=== PATIENT | female | born 1970 ===

== ENCOUNTER 2021-08-18 10:45 | Outpatient (RCR) | payer BC, SELFPAY ==
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
[2021-07-31 13:26] VITALS: BMI 28.0
--- NOTE | 2021-08-03 11:25 | PC.NURSE ---
Case opened in treatment team.
--- NOTE | 2021-08-07 15:54 | P.PNPSP_ITS ---
Subjective Subjective Date of Service: 08/07/21 Reason For Visit: ETPH dependence, Mood D/o NOS, PTSD Guardianship: No Medical Problems Affecting Mental Status: No Interim History: Trisha describes her mood as ?all right ?. States that there is not really any improvement in her mood at this time. Tearful, having difficulty with the upcoming holiday and her multiple losses this year. Medication Compliance: Yes Side effects from medications: No Attending Groups: Yes Review of Systems Acute medical concerns: No Medical Review of Systems: unchanged Review of Systems Review of Systems Yes all other systems are reviewed and are negative Constitutional: Reports no additional constitutional complaints Mental Status Exam Mental Status Exam Narrative: Well developed, well nourished female, in NAD. Appears stated age. Appropriately groomed and dressed, appears stated age. Sitting up in chair, fully alert and cooperative. Eye contact within normal limits. Alert and oriented x4. No involuntary movements noted, motor activity calm. Manner and behavior, cooperative. Speech was fluent, unimpaired, normal rate and volume. Mood alright, depressed . Affect depressed, anxious, tearful. Thought process and associations linear, goal directed. Thought content normal. No evidence of any type of delusional thoughts or hallucinations observed or reported. Patient denies suicidal ideation at this time, reports she is safe. No HI. Appears to be reliable historian. Cognition, memory, and attention appear grossly intact. Insight and judgment fair but adequate. Affect Description: Depressed, Anxious and Sad Depressive Symptoms: Difficulty Sleeping, Crying Spells, Loss of Int. in Activity, Feelings of Worthlessness, Hopelessness, Isolating-Friends/Family, Feelings of Guilt, Unhappiness, Increased Fatigue and Low Self Esteem Judgement: Fair Diagnostics Vital Signs (24Hr): BMI result Body Mass Index 28.0 Assessment & Plan Assessment & Plan (1) Major depressive disorder, recurrent severe without psychotic features: Status: Acute Code(s): F33.2 - Major depressive disorder, recurrent severe without psychotic features Assessment and Plan: Client presents as hopeless. Reports that she is feeling extremely depressed at this time, with no improvement. Tearful at times. Denies any type of thought of harm to self or others. Reports that she was watching the news regarding the [employer] vaccine and chance of blood clots. Reports that her son 21 days after receiving the vaccine due to a blood clot that caused an DE. client reports she is feels safe, plans to stay home and attend 12 step to meetings and to go to amish on Tuesday. Feels anxious regarding upcoming holiday. She has been invited to stay over at her ex-'s house with her ex and her teenage son. However she began to cry, stating that that would just remind her of everything that she has lost. She reports that she does not have any close friends in this area, as her friends are out [place] by [facility]. She is not close with her mother or sister, who have moved to [place]. She describes them as unsupportive. We discussed possibilities of coming to hospital for an evaluation, possibility of respite care, a grief support group, the upcoming AA [facility] and in-person meetings, attending amish. She reports that she feels safe, and does not feel that she needs to be evaluated for inpatient level of care at this time or for a respite. Denies SI. She states that on she plans to visit her son's grave in [place]. She is aware of the [facility] in [place], and may attend it. She reports that she does not need any medication changes at this time, but that she needs to learn how to cope with losses, and to develop a support system. (2) TASHA (generalized anxiety disorder): Status: Acute Code(s): F41.1 - Generalized anxiety disorder (3) Chronic post-traumatic stress disorder (PTSD): Status: Acute Code(s): F43.12 - Post-traumatic stress disorder, chronic (4) Alcohol use disorder, severe, in early remission: Status: Acute Code(s): F10.21 - Alcohol dependence, in remission Assessment and Plan: 1. Continue with current medications as prescribed. 2. Continue to offer support and encouragement. 3. Follow-up as per protocol. Patient educated on: diagnosis, medication risk/benefits, substance abuse and therapeutic strategies Informed Consent: understands Reason for contiued partial hosp. stay Substantial Risk for: harm to self, inability to function and med/psych decompensation Certification I certify that partial hospital treatment is medically necessary due to the symptoms and problems resulting from the patient's mental illness and the failure to treat the patient at the partial hospital level of care would likely result in the patient requiring inpatient psychiatric care which could not be prevented at a less intensive level of care. I spent minutes with the patient and/or on the patient floor today, greater than?50% of which was spent counseling/coordinating care. Discharge Plan Discharge Attending provider: Yazan Elliott Primary Care Provider: Akil Kinsey Medications: No Action multivitamin Tablet 1 tab PO DAILY RF: 0 atorvastatin 20 mg Tablet 20 mg PO DAILY RF: 0 trazodone 50 mg Tablet 50 - 100 mg PO BEDTIME PRN (Reason: Insomnia) RF: 0 omeprazole 40 mg Capsule,Delayed Release(Dr/Ec) 40 mg PO DAILY RF: 0 amlodipine 10 mg Tablet 10 mg PO DAILY RF: 0 lisinopril 10 mg Tablet 10 mg PO DAILY RF: 0 folic acid 1 mg Tablet 1,000 mcg PO DAILY RF: 0 paroxetine HCl [Paxil] 40 mg Tablet 40 mg PO DAILY RF: 0 Humira 40 mg/0.8 mL Syringe Kit 40 mg SUBCUT Q2W RF: 0 bupropion HCl [Wellbutrin XL] 300 mg Tablet Extended Release 24 Hr 300 mg PO QAM RF: 0 Vivitrol 380 mg Suspension,Extended Rel Recon 380 mg IM QMONTH RF: 0 Referrals: Akil Kinsey MD [Primary Care Provider] - 1 Week Telehealth Telehealth Location of provider rendering services: practice address Location of patient: address on file Patient Identification confirmed using: Name, : Yes Telehealth method: video Patient verbally consented to treatment: Yes Patient verbally consented to billing insurance company: Yes Patient informed of any privacy concerns related to visit: Yes Time spent with patient (mins): 15
--- NOTE | 2021-08-10 09:28 | PC.NURSE ---
Pt did not show up for community meeting today. I attempted to call pt at her residential home. I spoke to Ruthie, pt's emergency contact and staff member at the [facility]. Ruthie told me hat pt has been AWOL all weekend, since tuesday . She said she has been incontact with pt, and that pt assured her she would join groups today. She gave me pt's cell phone number (not listed in chart under contacts)- [phone]. I gave this # to Ngoc, program nurse, and explained what Ruthie said (as I had to start running group).
--- NOTE | 2021-08-10 14:47 | PC.NURSE ---
After discussing case with staff in treatment team meeting, I called pt on her cell phone. She answered and I spoke to her. She sounded dysthymic and spoke minimally in response to my questions. She said she is back at [facility], and that she is about to process her actions and her status at [facility] with the staff there. She is not sure whether or not she will be able to stay at [facility]. I let her know that she needs to be at [facility], or somewhere safe, for us to treat her (as directed by Lakesha Zimmer, [facility], criminal justice program director). She agreed to call me today and leave a message if I don't answer, letting us know if she will be continuing in treatment and staying at [facility]. I told her we need to hear from her before 7am tomorrow in able to send her a link to continue in treatment. I also explained that if she is discharged, she can return to treatment if she feels she needs it, but must be re-assessed.
--- NOTE | 2021-08-10 15:46 | P.PNPSP_ITS ---
Subjective Subjective Date of Service: 08/10/21 Reason For Visit: ETPH dependence, Mood D/o NOS, PTSD Guardianship: No Medical Problems Affecting Mental Status: No Interim History: Trisha reports feeling ?all right? today. Reports that she sl ept a lot over the weekend. Reports that she went over to her estranged 's house last night, and wrapped presents with the her and her teenage son. 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 She relates this to the fact that she was grieving her other son Gennaro who earlier this year. No SI/HI. Medication Compliance: Yes Side effects from medications: No Attending Groups: Yes Review of Systems Acute medical concerns: No Medical Review of Systems: unchanged Review of Systems Review of Systems Yes all other systems are reviewed and are negative Constitutional: Reports no additional constitutional complaints Mental Status Exam Mental Status Exam Narrative: Well developed, well nourished female, in NAD. Appears stated age. Appropriately groomed and dressed, appears stated age. Sitting up in chair, fully alert and cooperative. Eye contact within normal limits. Alert and oriented x4. No involuntary movements noted, motor activity calm. Manner and behavior, cooperative. Speech was fluent, unimpaired, normal rate and volume. Mood alright . Affect depressed, flat, blunted. Thought process and associations linear, goal directed. Thought content normal. No evidence of any type of delusional thoughts or hallucinations observed or reported. Patient denies suicidal ideation at this time, reports she is safe. No HI. Appears to be reliable historian. Cognition, memory, and attention appear grossly intact. Insight and judgment fair. Patient Appearance: Well Grooomed, Fatigued and Appropriate Patient Orientation: Person, Place, Time and Situation Level of Consciousness: Awake and Appropriate Affect Description: Depressed, Anxious and Sad Depressive Symptoms: Difficulty Sleeping, Crying Spells, Loss of Int. in Activity, Feelings of Worthlessness, Hopelessness, Unhappiness, Increased Fatigue and Low Self Esteem Judgement: Fair Diagnostics Vital Signs (24Hr): BMI result Body Mass Index 28.0 Assessment & Plan Assessment & Plan (1) Major depressive disorder, recurrent severe without psychotic features: Status: Acute Code(s): F33.2 - Major depressive disorder, recurrent severe without psychotic features Assessment and Plan: Client continues with symptoms of depression. Reports having difficulties dealing with grief and also going through divorce during . Struggling at this time. Reports that she does not want any medication changes, as she believes this is something she needs to process and get through. No SI at this time, no safety concern. 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 She states that this is a difficult time for her. (3) Chronic post-traumatic stress disorder (PTSD): Status: Acute Code(s): F43.12 - Post-traumatic stress disorder, chronic (4) Alcohol use disorder, severe, in early remission: Status: Acute Code(s): F10.21 - Alcohol dependence, in remission Assessment and Plan: Continues absent from alcohol at this time, receiving Vivitrol injections, 12 step meetings via zoom. Assessment and Plan: 1. Continue current medication regimen of wellbutrin, paxil, trazodone. 2. Follow-up as per protocol. Patient educated on: diagnosis and medication risk/benefits Informed Consent: understands Reason for contiued partial hosp. stay Substantial Risk for: harm to self, inability to function and med/psych decompensation Certification I certify that partial hospital treatment is medically necessary due to the symptoms and problems resulting from the patient's mental illness and the failure to treat the patient at the partial hospital level of care would likely result in the patient requiring inpatient psychiatric care which could not be prevented at a less intensive level of care. I spent minutes with the patient and/or on the patient floor today, greater than?50% of which was spent counseling/coordinating care. Discharge Plan Discharge Attending provider: Yazan Elliott Primary Care Provider: Akil Kinsey Medications: No Action multivitamin Tablet 1 tab PO DAILY RF: 0 atorvastatin 20 mg Tablet 20 mg PO DAILY RF: 0 trazodone 50 mg Tablet 50 - 100 mg PO BEDTIME PRN (Reason: Insomnia) RF: 0 omeprazole 40 mg Capsule,Delayed Release(Dr/Ec) 40 mg PO DAILY RF: 0 amlodipine 10 mg Tablet 10 mg PO DAILY RF: 0 lisinopril 10 mg Tablet 10 mg PO DAILY RF: 0 folic acid 1 mg Tablet 1,000 mcg PO DAILY RF: 0 paroxetine HCl [Paxil] 40 mg Tablet 40 mg PO DAILY RF: 0 Humira 40 mg/0.8 mL Syringe Kit 40 mg SUBCUT Q2W RF: 0 bupropion HCl [Wellbutrin XL] 300 mg Tablet Extended Release 24 Hr 300 mg PO QAM RF: 0 Vivitrol 380 mg Suspension,Extended Rel Recon 380 mg IM QMONTH RF: 0 Referrals: Akil Kinsey MD [Primary Care Provider] - 1 Week Telehealth Telehealth Location of provider rendering services: practice address Location of patient: address on file Patient Identification confirmed using: Name, : Yes Telehealth method: video Patient verbally consented to treatment: Yes Patient verbally consented to billing insurance company: Yes Patient informed of any privacy concerns related to visit: Yes Time spent with patient (mins): 15
--- NOTE | 2021-08-10 16:05 | PC.NURSE ---
I called and spoke to pt. We discussed options for grief and loss support groups online. I gave her info on 1) Grief Anonymous ([place]), and on 2) [email or web address] groups.
--- NOTE | 2021-08-13 14:51 | PC.NURSE ---
The client called after group and stated that she could noyt attend the third group because she was anxious about getting all her tasks done. She states that she is okay and will be in Tuesday.
--- NOTE | 2021-08-13 16:35 | PC.NURSE ---
I called and some with pt about a few more grief support groups that I found. These groups are more specific to grief around loss of a child. They include [facility], [facility] [employer] the [place], and Grieving Parents. I also sent an email to pt listing groups at her request.
--- NOTE | 2021-08-18 11:41 | PC.NURSE ---
Patient is scheduled to discharge today. Reviewed patient medications with patient. Patient reports using a pill organizer and is taking her mediations as prescribed. Denied Si, no safety issues.
--- NOTE | 2021-08-18 17:37 | PC.NURSE ---
I called an left a message for pt's therapist, Betty Zarate ([phone]). I informed therapist of pt's discharge from [facility] today.
--- NOTE | 2021-08-19 08:49 | P.PNPSP_ITS ---
Subjective Subjective Date of Service: 08/18/21 Reason For Visit: ETPH dependence, Mood D/o NOS, PTSD Interim History: Patient seen and discussed with team. Patient evaluated this morning and upon interview she reports Im doing good. Says the holiday was hard, but I got through it. She is feeling overall okay about discharge from [facility], has OP providers. Says the [facility] groups got her through the holidays. Sleep is good, however still says I sleep too much, feels like she needs it and it is restorative. Appetite is lower. Self care is not that good, has not been showering too often, wears baseball cap. Sees OP psych provider tomorrow. Does not want med changes. Denies SI/SIB, says Im safe. Has friend supports, ex is also sometimes supportive if not talking about divorce or money. Also has good relationship with her son, who is off to college soon, Im so happy for him. Medication Compliance: Yes Side effects from medications: No Attending Groups: Yes Review of Systems Acute medical concerns: No Medical Review of Systems: unchanged Mental Status Exam Mental Status Exam Narrative: Well developed, well nourished female, in NAD. Appears stated age.? Appropriately groomed and dressed, appears stated age. Sitting up in chair, fully alert and cooperative. Eye contact within normal limits.? Alert and oriented x4.? No involuntary movements noted, motor activity calm.? Manner and behavior, cooperative, engaged.? Speech was fluent, unimpaired, normal rate and volume. Mood good Affect calm, somewhat dysphoric but appropriate Thought process and associations linear, goal directed.? Thought content normal. No evidence of any type of delusional thoughts or hallucinations observed or reported.? Patient denies suicidal ideation at this time, reports she is safe.? No HI.? Appears to be reliable historian.? Cognition,? memory, and attention appear grossly intact.? Insight and judgment fair. Patient Appearance:?Well Groomed, Fatigued and Appropriate Patient Orientation:?Person, Place, Time and Situation Level of Consciousness:?Awake and Appropriate Affect Description:?Depressed, Anxious and Sad Depressive Symptoms:?Difficulty Sleeping, Crying Spells, Loss of Int. in Activity, Feelings of Worthlessness, Hopelessness, Unhappiness, Increased Fatigue and Low Self Esteem Judgment:?Fair Diagnostics Vital Signs (24Hr): BMI result Body Mass Index 28.0 Assessment & Plan Assessment & Plan (1) Alcohol use disorder, severe, in early remission: Status: Acute Code(s): F10.21 - Alcohol dependence, in remission (2) Major depressive disorder, recurrent severe without psychotic features: Status: Acute Code(s): F33.2 - Major depressive disorder, recurrent severe without psychotic features Assessment and Plan: Pt reports some improvement in symptoms of depression, continues to grief loss of her son.? Will follow up with her OP psych provider tomorrow, does not want any medication changes. Likes her current med regiment.? No SI at this time, no safety concerns. She Continues abstinence from alcohol at this time, receiving Vivitrol injections, 12 step meetings via zoom. ? ? ? 1. Continue current medication regimen of wellbutrin, paxil, trazodone. 2. Follow-up as per protocol. Pt is stable and ready for discharge from program. Certification I certify that partial hospital treatment is medically necessary due to the symptoms and problems resulting from the patient's mental illness and the failure to treat the patient at the partial hospital level of care would likely result in the patient requiring inpatient psychiatric care which could not be prevented at a less intensive level of care. I spent minutes with the patient and/or on the patient floor today, greater than?50% of which was spent counseling/coordinating care. Discharge Plan Discharge Attending provider: Yazan Elliott Primary Care Provider: Akil Kinsey Medications: No Action multivitamin Tablet 1 tab PO DAILY RF: 0 atorvastatin 20 mg Tablet 20 mg PO DAILY RF: 0 trazodone 50 mg Tablet 50 - 100 mg PO BEDTIME PRN (Reason: Insomnia) RF: 0 omeprazole 40 mg Capsule,Delayed Release(Dr/Ec) 40 mg PO DAILY RF: 0 amlodipine 10 mg Tablet 10 mg PO DAILY RF: 0 lisinopril 10 mg Tablet 10 mg PO DAILY RF: 0 folic acid 1 mg Tablet 1,000 mcg PO DAILY RF: 0 paroxetine HCl [Paxil] 40 mg Tablet 40 mg PO DAILY RF: 0 Humira 40 mg/0.8 mL Syringe Kit 40 mg SUBCUT Q2W RF: 0 bupropion HCl [Wellbutrin XL] 300 mg Tablet Extended Release 24 Hr 300 mg PO QAM RF: 0 Vivitrol 380 mg Suspension,Extended Rel Recon 380 mg IM QMONTH RF: 0 Referrals: Akil Kinsey MD [Primary Care Provider] - 1 Week Stand Alone Forms: Patient Portal Discharge page
== END 2021-08-19 07:42 | disposition home or self-care (01) ==
LOC: HO.PHPA 10:45
PROVIDERS: PCP Internal Medicine; Visit Provider Psychiatry & Neurology Psychiatry
DX: F33.2 Major depressive disorder, recurrent severe without psychotic features (principal); F41.1 Generalized anxiety disorder; F43.12 Post-traumatic stress disorder, chronic; F10.21 Alcohol dependence, in remission
CPT/HCPCS: 90791; 90853